=== PATIENT | male | born 1945 | race Caucasian/White ===

== ENCOUNTER 2020-08-30 09:11 | Emergency (ER) | payer OTHER ==
[~2020-08-30] VITALS: Ht 182.9 cm; Wt 115.7 kg
[2020-08-30] MEDS ORDERED: BASAGLAR K100 UNIT/1 (10:29)
[2020-08-30] MEDS ORDERED: METF500C PO (10:29)
[2020-08-30] MEDS ORDERED: LISI20 PO (10:29)
[2020-08-30] MEDS ORDERED: Isosorbide Mono30 MG PO (10:29)
[2020-08-30] MEDS ORDERED: ATOR40TA PO (10:30)
[2020-08-30] MEDS ORDERED: Norco 5-325 Ta1 EACH PO (10:44)
== END 2020-08-30 11:00 | disposition home or self-care (01) ==
LOC: ER 09:11
DX: M75.01 Adhesive capsulitis of right shoulder (principal); J44.9 Chronic obstructive pulmonary disease, unspecified; E11.9 Type 2 diabetes mellitus without complications; F17.210 Nicotine dependence, cigarettes, uncomplicated; Z88.0 Allergy status to penicillin
CPT/HCPCS: 73030; 99283-25; A9270

== ENCOUNTER 2020-10-23 09:25 | Emergency (ER) | payer OTHER ==
[~2020-10-23] VITALS: Ht 182.9 cm; Wt 120.2 kg
[~2020-10-23 09:25] MED LIST: ATOR40TA PO; BASAGLAR K100 UNIT/1; Isosorbide Mono30 MG PO; LISI20 PO; METF500C PO; Norco 5-325 Ta1 EACH PO
[2020-10-23] MEDS ORDERED: Bactrim Ds Tab1 EACH PO (09:59)
== END 2020-10-23 10:16 | disposition home or self-care (01) ==
LOC: ER 09:25
DX: K61.1 Rectal abscess (principal); E11.9 Type 2 diabetes mellitus without complications; J44.9 Chronic obstructive pulmonary disease, unspecified; I10 Essential (primary) hypertension; E78.00 Pure hypercholesterolemia, unspecified; F17.210 Nicotine dependence, cigarettes, uncomplicated; Z88.0 Allergy status to penicillin; Z79.84 Long term (current) use of oral hypoglycemic drugs; Z79.899 Other long term (current) drug therapy
CPT/HCPCS: 10061; 99282-25

== ENCOUNTER → 2022-05-08 | Outpatient (CLI) | payer OTHER ==
[~2022-05-08] MED LIST changes: +Bactrim Ds Tab1 EACH PO
== END | disposition home or self-care (01) ==
LOC: LAB SHORT 12:00
DX: S09.22XA Traumatic rupture of left ear drum, initial encounter (principal); H66.002 Acute suppurative otitis media without spontaneous rupture of ear drum, left ear; H92.12 Otorrhea, left ear
CPT/HCPCS: 87070; 87075; 87077; 87186; 87205

== ENCOUNTER 2022-12-17 11:14 | Emergency (ER) | payer OTHER ==
[~2022-12-17] VITALS: Ht 182.9 cm; Wt 121.6 kg
[2022-12-17 12:20] LABS: BASOPHILS ABSOLUTE AUTO 0.05 K/mm3 (0.00-0.23); BASOPHILS PERCENT AUTO 1 % (0-2); EOSINOPHILS ABSOLUTE AUTO 0.14 K/mm3 (0.00-0.68); EOSINOPHILS PERCENT AUTO 2 % (0-6); Hemoglobin 15.1 g/dL (13.5-17.5); IMMATURE GRAN ABSOLUTE AUTO 0.05 K/mm3 (0.00-0.10); IMMATURE GRAN PERCENT AUTO 1 % (0-1); LYMPHOCYTES ABSOLUTE AUTO 1.49 K/mm3 (0.84-5.20); LYMPHOCYTES PERCENT AUTO 23 % (21-46); MONOCYTES ABSOLUTE AUTO 0.62 K/mm3 (0.16-1.47); MONOCYTES PERCENT AUTO 10 % (4-13); Mean Corpuscular HGB 32.3 pg (26.0-34.0); Mean Corpuscular HGB Conc 32.8 g/dL (31.5-36.5); Mean Corpuscular Volume 98 fL (80-100); Mean Platelet Volume 11.2 fL (9.1-12.4); NEUTROPHILS ABSOLUTE AUTO 4.19 K/mm3 (1.96-9.15); NEUTROPHILS PERCENT AUTO 64 % (41-73); Platelet Count 149 K/mm3 (150-400); RDW Coefficient Variation 13.9 % (11.7-14.2); RDW Standard Deviation 50.9 fL (35.1-46.3); Red Blood Cell Count 4.68 M/mm3 (4.30-5.90); White Blood Cell Count 6.54 K/mm3 (4.00-11.30)
[2022-12-17 12:34] LABS: Albumin/Globulin Ratio 1.2 (0.8-1.8); Bilirubin, Total 1.5 mg/dL (0.1-1.0); Bun/Creatinine Ratio 21.6 (12.0-20.0); Calcium, Blood 9.5 mg/dL (8.5-10.1); Creatinine, Blood 1.11 mg/dL (0.60-1.20); Globulin, Blood 3.2 g/dL (2.2-4.0); Potassium, Blood 4.6 mmol/L (3.5-5.5); Total Protein, Blood 7.2 g/dL (6.4-8.2)
[2022-12-17 13:45] VITALS: BP 107/64
== END 2022-12-17 14:19 | disposition home or self-care (01) ==
LOC: ER 11:14
PROVIDERS: Student in an Organized Health Care Education/Training Program
DX: R55 Syncope and collapse (principal); E86.0 Dehydration; E11.9 Type 2 diabetes mellitus without complications; J44.9 Chronic obstructive pulmonary disease, unspecified; I10 Essential (primary) hypertension; E78.5 Hyperlipidemia, unspecified; F17.210 Nicotine dependence, cigarettes, uncomplicated; Z88.0 Allergy status to penicillin; Z79.84 Long term (current) use of oral hypoglycemic drugs; Z79.4 Long term (current) use of insulin; Z79.899 Other long term (current) drug therapy
CPT/HCPCS: 71045; 80053; 83880; 84484; 85025; 93005; 93010; 94640; 94664; 99285-25; J7030

== ENCOUNTER → 2023-08-05 | Outpatient (CLI) | payer OTHER | LOC: LAB SHORT 18:28 → LAB 18:28 | DX: J02.9 Acute pharyngitis, unspecified (principal) | CPT/HCPCS: 87081 ==

== ENCOUNTER 2024-01-28 06:51 | Day surgery (SDC) | payer OTHER ==
[~2024-01-28] VITALS: Ht 182.9 cm; Wt 108.7 kg
[~2024-01-28 06:51] MED LIST changes: +Lactated Ringer's 1,000 ML IV ONE; +Lidocaine 1%-Epineph 1:100000 20 ML MDV ONE; +Sodium Bicarb 8.4% 1 MEQ/ML 50 ML Vial ONE
[2024-01-28] MEDS ORDERED: CeFAZolin Sodium 2,000 MG VIAL ONE (07:11)
[2024-01-28] MEDS ORDERED: NS 50 ML IV ONE (07:11)
[2024-01-28] MEDS ORDERED: VICTOZA 2-0.6 MG/0.1 SQ (07:25)
[2024-01-28] MEDS ORDERED: FARXIGA10 MG PO (07:26)
[2024-01-28] MEDS ORDERED: TRELEGY ELLIPT1 EACH IH (07:27)
[2024-01-28] MEDS ORDERED: Lactated Ringer's 1,000 ML IV ONE (07:29)
--- NOTE | 2024-01-28 07:53 | NUR ---
01/28/24 0753 Jackson Chambers, TIMEOUT 0751 BLOCK INJECTED AT 0751 AND FINISHED AT 0752
[2024-01-28] MEDS ORDERED: FentaNYL Citrate 50 MCG/ML 2 ML Injection ONE (08:39)
[2024-01-28] MEDS ORDERED: propofoL 20 ML IV ONE (08:39)
[2024-01-28] MEDS ORDERED: Ondansetron HCl 2 MG / ML 2ML Vial ONE (08:41)
[2024-01-28] MEDS ORDERED: Dexamethasone Sod Phos 10 MG/ML 1ML VIAL ONE (08:41)
[2024-01-28 09:05] VITALS: BP 106/61
== END 2024-01-28 09:20 | disposition home or self-care (01) ==
LOC: ORSCSDS 06:51
PROVIDERS: Orthopaedic Surgery
PROC: 01N54ZZ Release Median Nerve, Percutaneous Endoscopic Approach (ICD-10-PCS; principal; 2024-01-28 08:30)
DX: G56.01 Carpal tunnel syndrome, right upper limb (principal); E11.9 Type 2 diabetes mellitus without complications; J44.9 Chronic obstructive pulmonary disease, unspecified; I10 Essential (primary) hypertension; F17.210 Nicotine dependence, cigarettes, uncomplicated; Z79.4 Long term (current) use of insulin; Z79.84 Long term (current) use of oral hypoglycemic drugs; Z79.899 Other long term (current) drug therapy
CPT/HCPCS: 82947; J0690; J1100; J2405; J2704; J3010; J7120

== ENCOUNTER → 2024-07-27 | Outpatient (CLI) | payer OTHER ==
[~2024-07-27] MED LIST changes: +FARXIGA10 MG PO; -Lactated Ringer's 1,000 ML IV ONE; -Lidocaine 1%-Epineph 1:100000 20 ML MDV ONE; -Sodium Bicarb 8.4% 1 MEQ/ML 50 ML Vial ONE; +TRELEGY ELLIPT1 EACH IH; +VICTOZA 2-0.6 MG/0.1 SQ
[2024-07-27 20:28] LABS: Microalb/Creat Ratio UR, Rand 11.712 mg/g (0.000-30.000)
== END ==
LOC: LAB 15:30 → LAB SHORT 15:30
PROVIDERS: Family Medicine
DX: E11.9 Type 2 diabetes mellitus without complications (principal)
CPT/HCPCS: 82043; 82570